=== PATIENT | male | born 1980 | race Caucasian/White ===

== ENCOUNTER 2019-12-01 10:59 | Emergency (ER) | payer SELFPAY ==
[~2019-12-01] VITALS: Ht 182.9 cm; Wt 83.9 kg
--- NOTE | 2019-12-01 11:30 | NUR ---
patient came in to the er c/o worsening back pain x 2 days, denies any trauma. On room air, breathing evenly and unlabored. kept comfortable, will continue to monitor accordingly.
[2019-12-01] MEDS ORDERED: KETOROLAC TROMETHAMINE INJ 60 MG/2 ML VIAL IM ONE ×2 (11:40→12:00)
[2019-12-01] MEDS ORDERED: HYDROCODONE/APAP 5/325MG 1 EACH TABLET ONE (11:40)
[2019-12-01] MEDS ORDERED: CYCLOBENZAPRINE 10 MG TABLET ONE (11:40)
[2019-12-01] MEDS ORDERED: CYCLOBENZAPRINE 10 MG TABLET PO ONE (12:00)
[2019-12-01] MEDS ORDERED: HYDROCODONE/APAP 5/325MG 1 EACH TABLET PO ONE (12:00)
[2019-12-01 12:18] VITALS: BP 127/81
--- NOTE | 2019-12-01 12:19 | NUR ---
Patient discharged to home in stable condition. Written and verbal after care instructions given. Patient verbalizes understanding of instruction.
== END 2019-12-01 12:19 | disposition home or self-care (01) ==
LOC: ER 11:01
DX: M54.5 Low back pain (principal)
CPT/HCPCS: 96372; 99283; J1885